=== PATIENT | male | born 1980 | race African-American/Black ===

== ENCOUNTER 2020-10-12 21:04 | Emergency (ER) | payer OTHER ==
[~2020-10-12] VITALS: Ht 175.3 cm; Wt 81.7 kg
== END 2020-10-12 23:43 | disposition home or self-care (01) ==
LOC: M.ERS 21:04
DX: Z20.822 Contact with and (suspected) exposure to COVID-19 (principal)

== ENCOUNTER 2020-10-19 21:45 | Emergency (ER) | payer OTHER ==
[~2020-10-19] VITALS: Ht 175.3 cm; Wt 83.9 kg
[2020-10-19 22:49] VITALS: BP 145/95
== END 2020-10-19 22:49 | disposition home or self-care (01) ==
LOC: M.ERS 21:45
DX: Z20.822 Contact with and (suspected) exposure to COVID-19 (principal)